=== PATIENT | male | born 1985 | race Caucasian/White ===

== ENCOUNTER 2017-06-06 09:08 | Outpatient (CLI) | payer BC ==
[2017-06-06] MEDS ORDERED: Iopamidol 370 76% 100 ML VIAL ONE (13:41)
== END 2017-06-06 09:09 | disposition home or self-care (01) ==
LOC: BICCT 09:08
PROVIDERS: ATTEND Internal Medicine
DX: R10.30 Lower abdominal pain, unspecified (principal)
CPT/HCPCS: 74177

== ENCOUNTER 2021-08-21 09:12 | Outpatient (CLI) | payer OTHER | END 2021-08-21 09:13 | disposition home or self-care (01) | LOC: ULT 09:12 | PROVIDERS: ATTEND Internal Medicine | DX: E80.6 Other disorders of bilirubin metabolism (principal); R79.89 Other specified abnormal findings of blood chemistry | CPT/HCPCS: 76700 ==